=== PATIENT | male | born 1990 | race Two or more races ===

== ENCOUNTER 2025-04-20 21:03 | Emergency (ER) | payer MEDICAID, SELFPAY ==
[2025-04-20 21:26] VITALS: BP 140/88; PULSE 61; RESP 18; TEMP 36.7; O2SAT 97
--- NOTE | 2025-04-20 21:36 | EDNOTE_ITS ---
ED Back Injury Pain RME/HPI General Chief Complaint: Back Pain/Injury Stated Complaint: BACK PAIN Time Seen by Provider: 04/20/25 21:36 Source: patient Arrival date/time: 04/20/25 21:03 Mode of arrival: ambulatory Limitations: no limitations RME / HPI RME / HPI Narrative: 35-year-old female presents to the ED with a complaint of pain to the anterior and then posterior aspect of his left chest. This began 1 week ago. MD Complaint: back pain and other (Anterior chest left lower.) Onset (ago): week(s) (1 week) Related Data Previous Rx's ?Medication ?Instructions ?Recorded naproxen 500 mg tablet 500 mg PO BID PRN pain #30 t abs 11/12/23 ibuprofen 600 mg tablet 600 mg PO TID PRN pain #30 t abs 04/21/25 Allergies Allergy/AdvReac Type Severity Reaction Status Date / Time No Known Allergies Allergy Verified 04/20/25 21:07 Review of Systems Constitutional Constitutional: Reports system reviewed and no additional complaints, except as documented Eyes Eyes: Reports system reviewed and no additional complaints, except as documented, Denies dry eyes, Denies exophthalmos and Reports floaters Cardiovascular Cardiovascular: Denies chest pain with activity and Denies claudication ED Exam Narrative Physical exam: Patient is tender in the area of the left mid axillary line of the chest and the back. General Limitations: Present no limitations General appearance: Present alert and in no apparent distress Head Head exam: Present atraumatic Eye Eye exam: Present normal appearance, PERRL and EOMI ENT ENT exam: Present normal exam, normal oropharynx and mucous membranes moist Neck Neck exam: Present normal inspection, full ROM and trachea midline Chest Chest inspection: Present normal inspection and symmetric chest wall rise Respiratory Respiratory exam: Present normal lung sounds bilaterally Cardiovascular Cardiovascular exam: Present regular rate, normal rhythm and normal heart sounds Abdominal Exam Abdominal exam: Present soft and normal bowel sounds Extremities Exam Extremities exam: Present normal inspection and full ROM Back Exam Back exam: Present normal inspection and full ROM Neurological Exam Neurological exam: Present alert and oriented X3 Psychiatric Psychiatric exam: Present normal affect and normal mood Skin Skin exam: Present warm, dry, intact and normal color Course Course Course Narrative: Patient will have a chest x-ray. Also have 600 mg of ibuprofen. Quality Measures none Orders Category Date Time Status CXR2 [XR chest 2V] Stat Exams 04/20/25 21:40 Completed X-ray is negative for any acute processes. Vital Signs Vital signs: Vital Signs Temperature 98.1 F 04/20/25 21:26 Pulse Rate 61 04/20/25 21:26 Respiratory Rate 18 04/20/25 21:26 Blood Pressure 140/88 H 04/20/25 21:26 Pulse Oximetry (%) 97 04/20/25 21:26 Oxygen Delivery Method Room Air 04/20/25 21:26 Pulse ox is 97% room air Back Pain / Injury MDM Narrative MDM Narrative:: Patient will be informed of his x-ray results and he will be discharged in no apparent distress. Patient has to follow-up with primary care physician in 1 week. He may return if worse or not better. Patient data External records reviewed:: Other (specify) Clinical information provided by:: none Social determinants that could affect healthcare access:: none Patient has the following chronic illnesses:: There is no chronic disease How is presenting disease/condition affected by chronic disease/condition?: no chronic disease Evaluation data The following diagnostics were reviewed and interpreted by me:: radiology exam(s) Lab and/or radiology exams considered but not ordered:: X-ray 2 view demonstrates no apparent infectious or acute process taking place. Interpretation Summary: Costochondritis Medications / Prescriptions Medications or Prescriptions considered but not ordered:: N/A Medication administrations:: Ibuprofen 600 mg 1 p.o. Consultations Consultation(s) initiated? (list below): No Consultation #1 (Physician, Specialty, Details): N/A Diagnosis Differential diagnosis back pain/injury: lumbar radiculopathy, strain of lumbar region, pyelonephritis and thoracic back pain Most likely diagnosis given after review of the tests above:: Costochondritis Admission Indicated Admission indicated?: not indicated Explain why admission is indicated or not indicated:: N/A Admission Request Was there a request for admission?: No Admission Attestation Admission request attestation: Knee Disposition Plan Disposition Plan: Discharge Discharge Attestation Discharge Attestation: The patient and all family members were given an opportunity to ask questions and understood the discharge instructions. Discharge instructions specifically effects, indications for sooner follow up or return to the emergency department, and the expected course of current diagnosis. Patient condition: Stable Discharge Plan Plan Patient Disposition: HOME (Self Care) Discharge Disposition comment: N/A Patient condition on transfer: Stable Prescriptions/Referrals Prescriptions/Med Rec: New ibuprofen 600 mg tablet 600 mg PO TID PRN (Reason: pain) Qty: 30 0RF No Action naproxen 500 mg tablet 500 mg PO BID PRN (Reason: pain) Qty: 30 0RF Referrals: No Primary/Family,Physician [Primary Care Provider] - In 1 week Problem List Clinical Impression: Acute costochondritis Patient/Caregiver Discharge Instructions Discharge Activity: activity as tolerated Print Language: Vietnamese Stand Alone Forms: Shanti Award Info., Patient Portal Info Letter PA/[employer]IONAL SALES EXECUTIVE Supervising Physician PA/[employer]ION[employer] SALES EXECUTIVE Supervising Physician: Julio César
--- NOTE | 2025-04-20 21:40 | XR_ITS ---
Examination: PA lateral chest 2 views TECHNIQUE: Upright PA and lateral chest 2 views Date and time: April 20, 2025 2152 hours INDICATIONS: Chest pain and shortness of breath today. FINDINGS: Normal heart size Lungs are clear. Minimal blunting of the right lateral costophrenic angle. No pneumonia or pulmonary edema IMPRESSION: No pneumonia or pulmonary edema
== END 2025-04-21 00:36 | disposition home or self-care (01) ==
PROVIDERS: Emergency Provider Emergency Medicine
DX: M94.0 Chondrocostal junction syndrome [Tietze] (principal)
CPT/HCPCS: 71046; 99283